=== PATIENT | male | born 1965 | race Caucasian/White ===

== ENCOUNTER 2017-11-29 16:24 | Inpatient (IN) | payer MEDICAID ==
[2017-11-29] VITALS (19 sets, daily range): BP systolic 80–104; BP diastolic 44–84; BMI 42.7
[~2017-11-29] VITALS: Ht 182.9 cm; Wt 151.7 kg
--- NOTE | ~2017-11-29 | OP ---
PATIENT NAME: JOHN DUMONT MEDICAL RECORD: [id number] :65 LOCATION:[facility] D.2304 ADMISSION DATE:11/29/17 SURGEON: ESTUARDO FERNANDEZ MD DATE OF OPERATION: 12/05/2017 PREOPERATIVE DIAGNOSES: 1. Acute renal failure, requiring hemodialysis. 2. Malfunctioning left neck nontunneled hemodialysis catheter. POSTOPERATIVE DIAGNOSES: 1. Acute renal failure, requiring hemodialysis. 2. Malfunctioning left neck nontunneled hemodialysis catheter. 3. Partially thrombosed left internal jugular vein. PROCEDURES: 1. Placement of the left subclavian 23-cm HemoSplit catheter (tunneled, cuffed hemodialysis catheter) under ultrasonographic and fluoroscopic guidance. 2. Immediate surgeon interpretation of ultrasonographic and fluoroscopic images. ANESTHESIA: Local with IV sedation. The risks, possible complications, and alternatives to the procedure were explained to the patient. He elects to proceed. No radiologist was present for this procedure. Static fluoroscopic images are obtained and are kept in the PACS system. Static ultrasonographic images are obtained and are kept in the patient's chart. OPERATIVE COURSE: The patient was conveyed to the operating room electively on 12/05/2017. IV sedation was induced by the anesthesia staff. The left neck was sterilely prepped and draped after the nontunneled catheter was removed and pressure held until the area was hemostatic. I imaged the left internal jugular vein. It was partially thrombosed. A local anesthetic was used to infiltrate the skin and subcutaneous tissues of the left upper chest as well as the left neck. Under ultrasonographic guidance, I tried to percutaneously access the left internal jugular vein but the thrombus made this impossible. I instead decided to place a supraclavicular left subclavian dialysis catheter. I then percutaneously accessed the left subclavian vein utilizing a supraclavicular approach. Guidewire passed easily. A small skin jessica was accomplished. Under real time fluoroscopy, the guidewire could be seen coursing into the right side of the heart. Another skin incision was accomplished in the left infraclavicular superior chest. I tunneled a 23-cm HemoSplit catheter from the chest incision to the neck incision. I dilated over the wire to a larger size. This was visualized fluoroscopically. I then placed a dilator sheath over the wire. The dilator and wire were removed. Through the sheath, the tips of the HemoSplit catheter were advanced. The Peel-Away sheath was then removed. Under real time fluoroscopy, there was no apparent kinking or twisting of the HemoSplit catheter. There was no pneumothorax. Images were obtained over the mediastinum as well as the left lung apex. The tips of the HemoSplit catheter appeared to be within the superior vena cava. OPERATIVE REPORT [id number] JOHN DUMONT The neck incision was closed with horizontal mattress 3-0 Vicryl suture. The flange of the HemoSplit catheter was sutured to the underlying skin with 2-0 nylons. Both lumens flushed easily and aspirated dark, nonpulsatile blood. I then topped off both lumens of the HemoSplit catheter with the appropriate amount of concentrated heparin. A single ultrasonographic image revealed a partially thrombosed, noncompressible left internal jugular vein. The patient was then conveyed back to the intensive care unit. TRANSINT:[id number] Voice Confirmation ID: [id number] DOCUMENT ID: [id number] ESTUARDO FERNANDEZ MD at 1158 CC: [id number] DICTATION DATE: 12/05/17 1546 AIR SAMPLING AND MONITORING: 12/05/17 1632 ADM IN [facility] [address] [place] [address]
--- NOTE | ~2017-11-29 | HP ---
PATIENT: JOHN DUMONT MEDICAL RECORD: [id number] ACCOUNT: [id number] LOCATION:[facility] D.2304 : 65 ADMISSION DATE: 11/29/17 HISTORY AND PHYSICAL EXAMINATION HISTORY OF PRESENT ILLNESS: This 52-year-old gentleman has been transferred from [place] for specialty intervention and he is presently in the ICU. Reviewing old records, he was initially evaluated in a different hospital and was found to have generalized fatigue, weakness, and was begun work up and found to have evidence of a DVT. He had evidence of an acute new onset lymphoma and was considered on this aspect there. The patient was then transferred to [place] for further intervention and evaluation and developed a DVT as well as some evidence of renal insufficiency and went into hepatorenal syndrome. The patient is presently septic and has been transferred to [facility] for further evaluation and nephrology consultation. Past medical history is significant for no significant problems over the recent year, other than he recently got and he went to the hospital recently for the generalized fatigue and weakness. Initially, he was given hemodialysis at the secondary hospital. He was only able to tolerate 2 hours of dialysis due to hypotension. He then became oliguric, had received a liter of fluid bolus, bicarbonate drip was initiated, and the patient was found to have an elevated lactic acid. The patient has had a difficult last 10-day stay in the hospital and has presently been transferred from [place] to [facility]. PAST MEDICAL HISTORY: Significant for acute renal failure requiring hemodialysis, acute injury to his liver secondary to hypertension. He also has a history of a new diagnosed non-Hodgkin's lymphoma. He has also had chronic anticoagulation for DVT. He was found to have evidence of cirrhosis on his CT scan and a questionable liver mass was newly found. He also had cholelithiasis. The patient is presently hypotensive on vasopressors at this time. He has evidence of metabolic acidosis, decreased platelets. He has chronic anticoagulation, hypotension, and possible hepatorenal syndrome. PAST SURGICAL HISTORY: Has only been on the arm at one time. He also did have a history of a Port-A-Cath placed. EGD was done as well. Past surgical history includes eye surgery back 30 years ago, broken arm 20 years ago, and hernia surgery. MEDICATIONS: Listed on his MAR sheet. SOCIAL HISTORY: He is a former tobacco user, quit over 10 years ago. Does drink significant amount of alcohol. He has been off it for the last 5 days prior to admission and then over the last 10 days. REVIEW OF SYSTEMS: Indicates increased fatigue, abdominal swelling, has an NG tube, rectal tube, Gonzalez as well and IV fluids. Neurologically, he is awake, alert, agitated. He is able to move all 4 extremities and sensation is intact. PHYSICAL EXAMINATION: VITAL SIGNS: At the time of the history and physical as below. GENERAL: He is a well-developed, well-nourished, morbidly obese 52-year-old white male in no acute distress, pale face is noted. HEENT: Pupils are equal, round and reactive to light. Extraocular movements are intact. Oral cavity and oropharynx otherwise clear. NECK: No cervical or pharyngeal adenopathy. No nuchal rigidity. HISTORY AND PHYSICAL [id number] JOHN DUMONT LUNGS: Have rales heard in the bases, otherwise clear. HEART: Regular rate and rhythm, I/ systolic ejection murmur. ABDOMEN: Distended, soft, and nontender. Hypoactive bowel sounds. Positive bowel sounds. No hepatosplenomegaly. EXTREMITIES: He has got 2+ dependent edema up to the knee area. He has got bruised heels that are present and sensation is intact. ASSESSMENT: At this time: 1. Possible sepsis. 2. Metabolic acidosis. 3. New onset non-Hodgkin's lymphoma. 4. Chronic anticoagulation. 5. Low platelets. 6. Acute renal failure. 7. Evidently acute tubular necrosis that has not resolved. 8. Cholelithiasis. 9. Questionable hepatorenal syndrome. 10. Hypertension. 11. History of cirrhosis. 12. Gastritis. 13. Liver mass, questionable history. PLAN: The patient will be admitted to the ICU and spent over 45 minutes time on H&P and direct patient care. He will have a consultation with GI, pulmonary, nephrology, and heme-onc. We will start the patient on broad-spectrum antibiotics times 2, IV fluids. We will monitor electrolyte protocol, pain management, and consultants as described. TRANSINT:[id number] Voice Confirmation ID: [id number] DOCUMENT ID: [id number] NERY ARREGUIN MD at 1600 CC: [id number] DICTATION DATE: 11/29/172235 ANIMAL LABORATORY TECHNICIAN: 11/30/17 0213 ADM IN [facility] [address] [place] [address]
--- NOTE | ~2017-11-29 | CN ---
PATIENT NAME:JOHN DUMONT MEDICAL RECORD: [id number] : 65 LOCATION:[facility]2304 ADMIT DATE: 11/29/17 ACCOUNT: [id number] CONSULTING PHYSICIAN: ESTUARDO FERNANDEZ MD REFERRING PHYSICIAN: NEYR ARREGUIN MD DATE OF CONSULTATION: 12/04/2017 CHIEF COMPLAINT: Swelling. HISTORY OF PRESENT ILLNESS: The patient has acute renal failure. He has a temporary hemodialysis catheter exiting the left neck. I have been asked to place a longer term dialysis catheter. Reportedly, the left neck non-tunneled catheter is not functioning very well. The risks, possible complications and alternatives to procedure were explained to the patient. He elects to proceed. The patient cannot give me much history. I wonder if there is some loss of higher cortical function or perhaps some slowing of higher cortical function as with an encephalopathy. Nothing aggravates. Nothing alleviates. History and physical and review of systems are difficult to obtain from this patient. This is a consultation note addendum. For the typed portion of the consult note, please see the chart. This would include the past medical and surgical history, current medications, allergies, social history as well as family history. REVIEW OF SYSTEMS: Really unreliable in this patient who is confused. PHYSICAL EXAMINATION: GENERAL: The patient appears acutely ill. Also appears chronically ill. HEAD: There is bilateral temporal wasting. EARS: External ears appear normal. EYES: Extraocular movements are intact. NECK: Trachea is midline. PULMONARY: Mildly labored. No intercostal retractions. ABDOMEN: Doughy. Nontender. The patient has anasarca. EXTREMITIES: No peripheral cyanosis. The patient does have peripheral edema involving the lower extremities. BACK: Mild thoracic kyphosis is noted. LYMPHATICS: No lymphangitic streaking of the exposed extremities. PSYCHIATRIC: Flat affect. IMPRESSION: Acute renal failure in a patient who has a poorly functioning dialysis catheter. PLAN: Will be replacement of the dialysis catheter with a tunneled catheter. TRANSINT:[id number] Voice Confirmation ID: [id number] DOCUMENT ID: [id number] CONSULT REPORT [id number] YAMILET DUMONTESTUARDO ENRIQUEZ MD at 1158 CC: [id number] DICTATION DATE: 12/05/17 1518 OPHTHALMOLOGY ASSISTANT: 12/05/17 1628 ADM IN [facility] [address] [place] [address]
--- NOTE | ~2017-11-29 | EC ---
PATIENT:JOHN DUMONT DATE OF SERVICE: 11/29/17 SEX: M MEDICAL RECORD: [id number] DATE OF : 65 LOCATION:[facility] D230 AGE OF PATIENT: 52 ADMISSION DATE: 11/29/17 REFERRING PHYSICIAN: INTERPRETING PHYSICIAN: BROCK KUHN MD ECHOCARDIOGRAM REPORT ECHO CHARGES 4 ECHO COMPLETE Date: 11/30 CLINICAL DIAGNOSIS: SEPSIS ECHOCARDIOGRAPHIC MEASUREMENTS (adult normal given) AC root (d.<3.7cm) 3.6 cm LV Septum d (<1.2 cm> 1.1 cm Valve Excursion 1.9 cm LV Septum (systole) 1.7 cm Left Atria (s.<4.0cm> 3.4 cm LVPW d(<1.2cm) 1.2 cm RV (d.<2.3cm) 1.9 cm LVPW (sytole) 1.8 cm LV diastole(<5.6CM) 6.3 cm MV E-F(>70mm/sec) cm LV systole 4.3 cm LVOT Diameter 2.0 cm MV exc.(>10mm) cm Est.ejection fraction (50-75%) % DOPPLER: LVIT cm/sec A 69.0 cm/sec E 60.0 cm/sec LA cm/sec RVSP 33.3 mmHg LVOT 106 cm/sec AOP1/2T m/s Asc. Ao 121 cm/sec RVOT cm/sec RA cm/sec PA cm/sec AV Gradient Peak 6.0 mmHg AV Mean 2.7 mmHg AV Area 3.0 cm MV Gradient Peak 2.5 mmHg MV Mean 0.93 mmHg MV Area cm COMMENTS: Foreign Language Professor: 1 [employer]UMN VINCENTOE Senior Warehouse Clerk: 3 Dr. Rollins TAPE# PACS Pericardial Effusion N DATE OF SERVICE: Adequate 2D echo, color-flow and spectral Doppler, and M-Mode. No LVH. LV internal dimension is normal. Wall motion is normal. EF is greater than or equal to 55%. Aortic valve sclerosis without stenosis by Doppler interrogation. Left atrium normal at 3.4 cm. Mitral valve shows no prolapse. Trace mitral regurgitation. Right-sided chamber is normal. Mild TR. TRANSINT:[id number] Voice Confirmation ID: [id number] DOCUMENT ID: [id number] ECHOCARDIOGRAM REPORT [id number] JOHN DUMONT BROCK KUHN MD at 1132 CC: [id number] DICTATION DATE: 12/01/17 1118 DECORATING KILN OPERATOR: 12/01/17 1349 ADM IN [place] [id number] [place] [id number]
[2017-11-29] MEDS ORDERED: PROVENTIL HFA6.7 GM INH (21:03)
[2017-11-29] MEDS ORDERED: PROTONIX40 MG PO (21:04)
[2017-11-29] MEDS ORDERED: REGLAN5 MG PO (21:04)
[2017-11-29] MEDS ORDERED: ELIQUIS2.5 MG PO (21:04)
[2017-11-29] MEDS ORDERED: ULTRAM50 MG PO (21:05)
[2017-11-30] VITALS (94 sets, daily range): BP systolic 75–113; BP diastolic 42–92; Ht 182.9 cm; Wt 151.7 kg
[2017-11-30 03:43] LABS: BASOPHILS 0.2 % (0-2); EOSINOPHILS 0.3 % (0-7); HEMATOCRIT 29.5 % (42.0-54.0); HEMOGLOBIN 9.5 g/dL (13.5-17.5); IMMATURE GRANULOCYTES 1.6 % (0-5); LYMPHOCYTES 11.6 % (15-50); MCH 24.9 pg (26.0-34.0); MCHC 32.2 g/dL (31.0-37.0); MCV 77.4 fL (80.0-100.0); MONOCYTES 6.9 % (2-11); NEUTROPHILS 79.4 % (40-80); RBC 3.81 10x6/uL (4.20-6.10); RDW 24.5 % (11.5-14.5)
[2017-11-30 03:45] LABS: PLATELET COUNT 42 10x3/uL (130-400)
[2017-11-30 04:02] LABS: APPEARANCE HAZY (CLEAR); BACTERIA FEW /hpf (NONE SEEN); BILIRUBIN NEGATIVE (NEGATIVE); COLOR DK YELLOW (YELLOW); EPITHELIAL CELLS 0-5 /hpf (0-5); GLUCOSE NEGATIVE (NEGATIVE); GRANULAR CAST OCC /lpf (NONE SEEN); KETONE NEGATIVE (NEGATIVE); MUCUS <1+ /lpf (NONE SEEN); NITRITE NEGATIVE (NEGATIVE); PROTEIN 1+ mg/dL (NEGATIVE); SPECIFIC GRAVITY 1.015 (1.005-1.020); UROBILINOGEN NORMAL (NORMAL)
[2017-11-30 04:07] LABS: INR 1.56 (0.85-1.17); PROTIME 18.1 SECONDS (11.6-15.0)
[2017-11-30 04:08] LABS: APTT 54.1 SECONDS (22.8-39.4)
[2017-11-30 04:15] LABS: ALBUMIN 1.4 g/dL (3.4-5.0); ANION GAP 23.8 mmol/L (8-16); BILIRUBIN - TOTAL 2.74 mg/dL (0.2-1.3); CARBON DIOXIDE 15.1 mmol/L (21.0-32.0); CREATININE - SERUM 4.3 mg/dL (0.6-1.3); MAGNESIUM - SERUM 2.4 mg/dL (1.8-2.4); PHOSPHOROUS 6.6 mg/dL (2.5-4.9); POTASSIUM - SERUM 4.9 mmol/L (3.5-5.1); PROTEIN - SERUM 4.8 g/dL (6.4-8.2); THYROID STIMULATING HORMONE 1.4 uIU/mL (0.36-3.74)
[2017-11-30 04:18] LABS: CALCIUM 6.6 mg/dL (8.5-10.1)
[2017-11-30 04:53] LABS: PLATELET ESTIMATE DECREASED; PLATELET MORPHOLOGY NORMAL PLT MORPH
[2017-11-30 11:18] LABS: ANION GAP 24.4 mmol/L (8-16); CARBON DIOXIDE 14.6 mmol/L (21.0-32.0); CREATININE - SERUM 4.3 mg/dL (0.6-1.3)
[2017-11-30 11:31] LABS: CALCIUM 6.6 mg/dL (8.5-10.1)
[2017-12-01] VITALS (98 sets, daily range): BP systolic 67–119; BP diastolic 44–92
[2017-12-01 05:34] LABS: BASOPHILS 0.2 % (0-2); EOSINOPHILS 0.4 % (0-7); HEMATOCRIT 28.5 % (42.0-54.0); HEMOGLOBIN 9.2 g/dL (13.5-17.5); IMMATURE GRANULOCYTES 1.3 % (0-5); LYMPHOCYTES 10.9 % (15-50); MCH 25.2 pg (26.0-34.0); MCHC 32.3 g/dL (31.0-37.0); MCV 78.1 fL (80.0-100.0); MONOCYTES 5.8 % (2-11); NEUTROPHILS 81.4 % (40-80); PLATELET COUNT 50 10x3/uL (130-400); RBC 3.65 10x6/uL (4.20-6.10); RDW 25.4 % (11.5-14.5); WBC 12.6 10x3/uL (4.8-10.8)
[2017-12-01 05:59] LABS: ALKALINE PHOSPHATASE 283 U/L (46-116); ALT (SGPT) 10 U/L (10-68); AMYLASE - SERUM 142 U/L (25-115); CALC OSMOLALITY 291 mosm/kg (275-300); CALCIUM 7.2 mg/dL (8.5-10.1); CHLORIDE - SERUM 96 mmol/L (98-107); CKMB 0.3 U/L (0.0-3.6); CREATINE KINASE 17 UL (21-232); GLUCOSE 161 mg/dL (74-106); LIPASE 338 U/L (73-393); MAGNESIUM - SERUM 2.3 mg/dL (1.8-2.4); PHOSPHOROUS 7.1 mg/dL (2.5-4.9); POTASSIUM - SERUM 5.1 mmol/L (3.5-5.1); PRO BNP 2331 pg/mL (0-125); PROTEIN - SERUM 4.9 g/dL (6.4-8.2); SODIUM 131 mmol/L (136-145); TROPONIN-I < 0.017 ng/mL (0.000-0.060); UREA NITROGEN 86 mg/dL (7-18); eGFR NON AFRICAN AMERICAN 17 mL/min (90-120)
[2017-12-01 06:01] LABS: ALBUMIN 1.8 g/dL (3.4-5.0); CARBON DIOXIDE 18.3 mmol/L (21.0-32.0); LDH 3859 U/L (85-227)
[2017-12-01 06:02] LABS: INR 1.61 (0.85-1.17); PROTIME 18.6 SECONDS (11.6-15.0)
[2017-12-01 06:04] LABS: APTT 53.6 SECONDS (22.8-39.4); D-DIMER-QUANTITATIVE 3.9 ug/mLFEU (0.20-0.54)
[2017-12-02] VITALS (97 sets, daily range): BP systolic 81–125; BP diastolic 46–99
[2017-12-02 05:21] LABS: BASOPHILS 0.1 % (0-2); EOSINOPHILS 0.1 % (0-7); HEMATOCRIT 28.2 % (42.0-54.0); HEMOGLOBIN 9.1 g/dL (13.5-17.5); IMMATURE GRANULOCYTES 1.5 % (0-5); LYMPHOCYTES 9.9 % (15-50); MCH 25.6 pg (26.0-34.0); MCHC 32.3 g/dL (31.0-37.0); MCV 79.2 fL (80.0-100.0); MONOCYTES 6.2 % (2-11); NEUTROPHILS 82.2 % (40-80); RBC 3.56 10x6/uL (4.20-6.10); RDW 26.1 % (11.5-14.5); WBC 14.8 10x3/uL (4.8-10.8)
[2017-12-02 05:22] LABS: PLATELET COUNT 47 10x3/uL (130-400)
[2017-12-02 05:38] LABS: INR 1.8 (0.85-1.17); PROTIME 20.3 SECONDS (11.6-15.0)
[2017-12-02 05:39] LABS: APTT 56.5 SECONDS (22.8-39.4)
[2017-12-02 05:41] LABS: ALBUMIN 1.6 g/dL (3.4-5.0); ANION GAP 21.9 mmol/L (8-16); BILIRUBIN - TOTAL 3.8 mg/dL (0.2-1.3); CARBON DIOXIDE 17.3 mmol/L (21.0-32.0); MAGNESIUM - SERUM 2.3 mg/dL (1.8-2.4); POTASSIUM - SERUM 5.2 mmol/L (3.5-5.1); PROTEIN - SERUM 4.8 g/dL (6.4-8.2)
[2017-12-02 05:46] LABS: CALCIUM 6.7 mg/dL (8.5-10.1)
[2017-12-03] VITALS (93 sets, daily range): BP systolic 54–111; BP diastolic 43–84
[2017-12-03 04:03] LABS: BASOPHILS 0.1 % (0-2); EOSINOPHILS 0.1 % (0-7); IMMATURE GRANULOCYTES 1.6 % (0-5); LYMPHOCYTES 7.6 % (15-50); MCH 27.3 pg (26.0-34.0); MCHC 33.9 g/dL (31.0-37.0); MCV 80.5 fL (80.0-100.0); NEUTROPHILS 84.6 % (40-80); RDW 24.6 % (11.5-14.5); WBC 15.1 10x3/uL (4.8-10.8)
[2017-12-03 04:06] LABS: HEMOGLOBIN 11.2 g/dL (13.5-17.5); PLATELET COUNT 35 10x3/uL (130-400)
[2017-12-03 05:24] LABS: ALBUMIN 1.8 g/dL (3.4-5.0); BILIRUBIN - TOTAL 4.3 mg/dL (0.2-1.3); CARBON DIOXIDE 14.5 mmol/L (21.0-32.0); CREATININE - SERUM 4.3 mg/dL (0.6-1.3); PROTEIN - SERUM 4.6 g/dL (6.4-8.2); VANCOMYCIN - TROUGH 26.4 ug/mL (10.0-20.0)
[2017-12-03 05:27] LABS: CALCIUM 6.7 mg/dL (8.5-10.1)
[2017-12-03 06:07] LABS: POTASSIUM - SERUM 5.5 mmol/L (3.5-5.1)
[2017-12-03 09:10] LABS: ANA REFLEX - DIRECT Negative (Negative)
[2017-12-04] VITALS (94 sets, daily range): BP systolic 78–132; BP diastolic 46–464
[2017-12-04 04:14] LABS: HEPATITIS C ANTIBODY <0.1 (0.0-0.9)
[2017-12-04 04:24] LABS: BASOPHILS 0.1 % (0-2); EOSINOPHILS 0 % (0-7); HEMATOCRIT 28.4 % (42.0-54.0); HEMOGLOBIN 9.1 g/dL (13.5-17.5); IMMATURE GRANULOCYTES 1.1 % (0-5); LYMPHOCYTES 6.1 % (15-50); MCH 26.2 pg (26.0-34.0); MCV 81.8 fL (80.0-100.0); MONOCYTES 4.1 % (2-11); NEUTROPHILS 88.6 % (40-80); RBC 3.47 10x6/uL (4.20-6.10); RDW 24.6 % (11.5-14.5)
[2017-12-04 04:25] LABS: PROTIME 16.9 SECONDS (11.6-15.0)
[2017-12-04 04:26] LABS: PLATELET COUNT 42 10x3/uL (130-400)
[2017-12-04 04:27] LABS: APTT 48.9 SECONDS (22.8-39.4); INR 1.42 (0.85-1.17)
[2017-12-04 05:04] LABS: ALKALINE PHOSPHATASE 189 U/L (46-116); BILIRUBIN - TOTAL 4.62 mg/dL (0.2-1.3); CALC OSMOLALITY 298 mosm/kg (275-300); CHLORIDE - SERUM 97 mmol/L (98-107); CHOL - HDL RATIO 12.3 ratio (2.3-4.9); CHOLESTEROL, TOTAL 111 mg/dL (0-200); CREATININE - SERUM 4.2 mg/dL (0.6-1.3); GLUCOSE 159 mg/dL (74-106); HDL CHOLESTEROL 9 mg/dL (32-96); MAGNESIUM - SERUM 2.3 mg/dL (1.8-2.4); PHOSPHOROUS 7.1 mg/dL (2.5-4.9); PROTEIN - SERUM 4.7 g/dL (6.4-8.2); SODIUM 135 mmol/L (136-145); TRIGLYCERIDE 408 mg/dL (30-200); UREA NITROGEN 86 mg/dL (7-18); VANCOMYCIN - TROUGH 19.7 ug/mL (10.0-20.0); eGFR NON AFRICAN AMERICAN 16 mL/min (90-120)
[2017-12-04 05:06] LABS: POTASSIUM - SERUM 4.6 mmol/L (3.5-5.1)
[2017-12-04 05:07] LABS: CARBON DIOXIDE 20.4 mmol/L (21.0-32.0)
[2017-12-04 05:09] LABS: ALT (SGPT) 16 U/L (10-68); CALCIUM 6.2 mg/dL (8.5-10.1); FERRITIN 9263 ng/mL (3-244)
[2017-12-04] MEDS ORDERED: COUMADIN3 MG PO (10:04)
[2017-12-04] MEDS ORDERED: VITAMIN D5000 UNIT PO (10:06)
[2017-12-04] MEDS ORDERED: ULTRAM50 MG PO (10:08)
[2017-12-04 13:22] LABS: MITOCHONDRIAL ANTIBODY 4.7 Units (0.0-20.0); SMOOTH MUSCLE ABS (ACTIN) 10 Units (0-19)
[2017-12-05] VITALS (91 sets, daily range): BP systolic 75–121; BP diastolic 53–95
[2017-12-05 03:45] LABS: BASOPHILS 0.1 % (0-2); EOSINOPHILS 0.1 % (0-7); HEMATOCRIT 27.8 % (42.0-54.0); HEMOGLOBIN 8.9 g/dL (13.5-17.5); IMMATURE GRANULOCYTES 0.5 % (0-5); LYMPHOCYTES 6.2 % (15-50); MCH 26.4 pg (26.0-34.0); MCV 82.5 fL (80.0-100.0); MONOCYTES 3.4 % (2-11); NEUTROPHILS 89.7 % (40-80); RBC 3.37 10x6/uL (4.20-6.10); RDW 24.8 % (11.5-14.5); WBC 9.6 10x3/uL (4.8-10.8)
[2017-12-05 03:49] LABS: PLATELET COUNT 22 10x3/uL (130-400)
[2017-12-05 04:12] LABS: ALBUMIN 2.1 g/dL (3.4-5.0); ANION GAP 19.3 mmol/L (8-16); BILIRUBIN - TOTAL 5.3 mg/dL (0.2-1.3); CARBON DIOXIDE 24.2 mmol/L (21.0-32.0); CREATININE - SERUM 4.5 mg/dL (0.6-1.3); POTASSIUM - SERUM 4.5 mmol/L (3.5-5.1); PROTEIN - SERUM 4.5 g/dL (6.4-8.2)
[2017-12-05 04:27] LABS: CALCIUM 6.1 mg/dL (8.5-10.1)
[2017-12-05 16:15] LABS: FACTOR VIII - APTT 55.3 sec (22.9-30.2); FACTOR VIII - APTT 1:1 60 MIN 32.1 sec (22.9-30.2); FACTOR VIII ACTIVITY 273 % (57-163)
[2017-12-06] VITALS (91 sets, daily range): BP systolic 11–138; BP diastolic 45–95
[2017-12-06 03:26] LABS: BASOPHILS 0 % (0-2); EOSINOPHILS 0.2 % (0-7); HEMATOCRIT 25.6 % (42.0-54.0); IMMATURE GRANULOCYTES 0.9 % (0-5); MCH 26.4 pg (26.0-34.0); MCHC 31.3 g/dL (31.0-37.0); MEAN PLATELET VOLUME 9.4 fL (7.4-10.4); MONOCYTES 4.2 % (2-11); NEUTROPHILS 87.7 % (40-80); RBC 3.03 10x6/uL (4.20-6.10); RDW 25.6 % (11.5-14.5)
[2017-12-06 03:32] LABS: MCV 84.5 fL (80.0-100.0); WBC 5.4 10x3/uL (4.8-10.8)
[2017-12-06 03:33] LABS: PLATELET COUNT 27 10x3/uL (130-400)
[2017-12-06 03:50] LABS: INR 1.35 (0.85-1.17); PROTIME 16.2 SECONDS (11.6-15.0)
[2017-12-06 03:51] LABS: APTT 40.5 SECONDS (22.8-39.4)
[2017-12-06 03:53] LABS: ALBUMIN 2.3 g/dL (3.4-5.0); BILIRUBIN - TOTAL 6.96 mg/dL (0.2-1.3); CREATININE - SERUM 3.6 mg/dL (0.6-1.3); PROTEIN - SERUM 4.7 g/dL (6.4-8.2)
[2017-12-06 04:04] LABS: CALCIUM 6.5 mg/dL (8.5-10.1)
[2017-12-07] VITALS (87 sets, daily range): BP systolic 65–121; BP diastolic 44–83
[2017-12-07 04:52] LABS: BASOPHILS 0 % (0-2); EOSINOPHILS 0.2 % (0-7); HEMATOCRIT 25.2 % (42.0-54.0); HEMOGLOBIN 7.9 g/dL (13.5-17.5); IMMATURE GRANULOCYTES 0.7 % (0-5); LYMPHOCYTES 7.8 % (15-50); MCH 27.2 pg (26.0-34.0); MCHC 31.3 g/dL (31.0-37.0); MONOCYTES 4.7 % (2-11); NEUTROPHILS 86.6 % (40-80); WBC 5.4 10x3/uL (4.8-10.8)
[2017-12-07 05:07] LABS: MCV 86.9 fL (80.0-100.0)
[2017-12-07 05:08] LABS: PLATELET COUNT 15 10x3/uL (130-400)
[2017-12-07 05:09] LABS: INR 1.42 (0.85-1.17); PROTIME 16.9 SECONDS (11.6-15.0)
[2017-12-07 05:10] LABS: APTT 39.9 SECONDS (22.8-39.4)
[2017-12-07 05:15] LABS: ALBUMIN 2.4 g/dL (3.4-5.0); ANION GAP 21.9 mmol/L (8-16); BILIRUBIN - TOTAL 7.46 mg/dL (0.2-1.3); CARBON DIOXIDE 21.8 mmol/L (21.0-32.0); CREATININE - SERUM 3.2 mg/dL (0.6-1.3); PHOSPHOROUS 4.4 mg/dL (2.5-4.9); POTASSIUM - SERUM 3.7 mmol/L (3.5-5.1)
[2017-12-07 05:18] LABS: CALCIUM 6.8 mg/dL (8.5-10.1)
[2017-12-07 12:17] LABS: FUNGUS STAIN Final report (())
[2017-12-08] VITALS (36 sets, daily range): BP systolic 90–125; BP diastolic 54–82
[2017-12-08 04:38] LABS: BASOPHILS 0 % (0-2); EOSINOPHILS 0 % (0-7); HEMATOCRIT 29.1 % (42.0-54.0); IMMATURE GRANULOCYTES 0.7 % (0-5); LYMPHOCYTES 6.4 % (15-50); MCH 27.3 pg (26.0-34.0); MCHC 30.9 g/dL (31.0-37.0); MCV 88.2 fL (80.0-100.0); MEAN PLATELET VOLUME 10.3 fL (7.4-10.4); MONOCYTES 4.9 % (2-11); RDW 25.2 % (11.5-14.5); WBC 6.7 10x3/uL (4.8-10.8)
[2017-12-08 04:45] LABS: PLATELET COUNT 18 10x3/uL (130-400)
[2017-12-08 04:55] LABS: ALBUMIN 2.7 g/dL (3.4-5.0); ANION GAP 25.6 mmol/L (8-16); BILIRUBIN - TOTAL 9.58 mg/dL (0.2-1.3); CARBON DIOXIDE 20.3 mmol/L (21.0-32.0); CREATININE - SERUM 2.9 mg/dL (0.6-1.3); MAGNESIUM - SERUM 2.1 mg/dL (1.8-2.4); PHOSPHOROUS 4.4 mg/dL (2.5-4.9); POTASSIUM - SERUM 3.9 mmol/L (3.5-5.1); PROTEIN - SERUM 5.4 g/dL (6.4-8.2)
[2017-12-08 05:06] LABS: INR 1.56 (0.85-1.17); PROTIME 18.2 SECONDS (11.6-15.0)
[2018-01-07 15:09] LABS: FUNGUS MYCOLOGY CULTURE Final report (())
== END 2017-12-08 16:34 | disposition hospice, inpatient (51) | DRG 853 ==
LOC: D.ICU 16:24
PROVIDERS: Family Medicine; Internal Medicine Gastroenterology; Internal Medicine Pulmonary Disease; Radiology Vascular & Interventional Radiology; Surgery
PROC: 05H633Z Insertion of Infusion Device into Left Subclavian Vein, Percutaneous Approach (ICD-10-PCS; 2017-12-05)
PROC: 0QB23ZX Excision of Right Pelvic Bone, Percutaneous Approach, Diagnostic (ICD-10-PCS; 2017-12-05)
PROC: 07DR3ZX Extraction of Iliac Bone Marrow, Percutaneous Approach, Diagnostic (ICD-10-PCS; principal; 2017-12-05 09:00)
PROC: 0JH63XZ Insertion of Tunneled Vascular Access Device into Chest Subcutaneous Tissue and Fascia, Percutaneous Approach (ICD-10-PCS; 2017-12-05 09:00)
DX: A41.9 Sepsis, unspecified organism (principal); R65.21 Severe sepsis with septic shock; K76.7 Hepatorenal syndrome; R53.2 Functional quadriplegia; N17.0 Acute kidney failure with tubular necrosis; J18.9 Pneumonia, unspecified organism; J96.01 Acute respiratory failure with hypoxia; E43 Unspecified severe protein-calorie malnutrition; E87.2 Acidosis; C85.90 Non-Hodgkin lymphoma, unspecified, unspecified site; I82.409 Acute embolism and thrombosis of unspecified deep veins of unspecified lower extremity; J90 Pleural effusion, not elsewhere classified; I82.C12 Acute embolism and thrombosis of left internal jugular vein; D69.6 Thrombocytopenia, unspecified; I10 Essential (primary) hypertension; I95.9 Hypotension, unspecified; K80.20 Calculus of gallbladder without cholecystitis without obstruction; K29.70 Gastritis, unspecified, without bleeding; R16.0 Hepatomegaly, not elsewhere classified; K74.60 Unspecified cirrhosis of liver; E66.01 Morbid (severe) obesity due to excess calories; R34 Anuria and oliguria; R60.1 Generalized edema; K56.41 Fecal impaction; Z79.01 Long term (current) use of anticoagulants; K72.90 Hepatic failure, unspecified without coma; J44.9 Chronic obstructive pulmonary disease, unspecified

== ENCOUNTER 2017-12-08 14:31 | Inpatient (IN) | payer OTHER ==
[~2017-12-08] VITALS: Ht 182.9 cm; Wt 151.8 kg
[~2017-12-08 14:31] MED LIST: COUMADIN3 MG PO; ELIQUIS2.5 MG PO; PROTONIX40 MG PO; PROVENTIL HFA6.7 GM INH; REGLAN5 MG PO; ULTRAM50 MG PO; VITAMIN D5000 UNIT PO
[2017-12-08 15:27] VITALS: BP 98/62; Ht 182.9 cm; Wt 151.8 kg
== END 2017-12-08 23:53 | DRG 951 ==
LOC: D.ICU 14:31 → D.SDCHOLD 14:31 → D.ICU 16:35 → D.MS 17:23
DX: Z51.5 Encounter for palliative care (principal)